=== PATIENT | male | born 1985 | race Caucasian/White ===

== ENCOUNTER 2019-11-17 17:13 | Emergency (ER) | payer BC ==
[2019-11-17] MEDS ORDERED: Amoxicillin/Clavulanate K 875-125 MG Tab PO ONE (17:14)
[2019-11-17] MEDS ORDERED: Ketorolac 10 MG Tab PO ONE (17:14)
[2019-11-17] MEDS ORDERED: Take Home: Ketorolac 10 MG Tab, 4 Tab Pack PO ONE (17:53)
[2019-11-17] MEDS ORDERED: Take Home: Amoxicillin/Clavulanate K 875-125 MG Tab, 2 Tab Pack PO ONE (17:53)
[2019-11-17 17:56] VITALS: BP 185/124
[2019-11-17 17:57] VITALS: PULSE 64
--- NOTE | 2019-11-17 18:01 | EDM.PDOC ---
ED HPI GENERAL MEDICAL PROBLEM - General Chief Complaint: General Stated Complaint: ? infected tooth Time Seen by Provider: 11/17/19 17:40 Source of Information: Reports: Patient History Limitations: Reports: No Limitations - History of Present Illness INITIAL COMMENTS - FREE TEXT/NARRATIVE: Godfrey is a 34 yo male who presents ambulatory to the ED with complaints of tooth pain to the right upper and lower jaws. Admits the pain is a 9 out of 10. He thinks he has an infected tooth. Admits to poor dentition. States it has been hurting the last couple days. States he last took Tylenol around 1200 today. Jaw Pain Score (Numeric/FACES): 9 - Related Data Allergies Allergy/AdvReac Type Severity Reaction Status Date / Time morphine Allergy Nausea Verified 11/17/19 17:38 Home Meds: Home Meds . [No Known Home Meds] 06/01/15 [History] Past Medical History - Past Health History Medical/Surgical History: Denies Medical/Surgical History Other Musculoskeletal History: right femur fracture Other Oncologic History: Precancerous colon polyp - Infectious Disease History Infectious Disease History: Reports: MRSA - Past Surgical History HEENT Surgical History: Reports: Adenoidectomy, Tonsillectomy Other Musculoskeletal Surgeries/Procedures:: Fracture repair to right femur Social & Family History - Tobacco Use Smoking Status *Q: Current Every Day Smoker Years of Tobacco use: 16 Packs/Tins Daily: 0.5 - Caffeine Use Caffeine Use: Reports: Soda - Recreational Drug Use Recreational Drug Use: No ED ROS GENERAL - Review of Systems Review Of Systems: Comprehensive ROS is negative, except as noted in HPI. ED EXAM, GENERAL - Physical Exam Exam: See Below Exam Limited By: No Limitations General Appearance: Alert, No Apparent Distress Ears: Normal External Exam, Normal Canal, Hearing Grossly Normal, Normal TMs Nose: No Blood, Other (purulent discharge, tenderness with palpation to right maxillary sinus) Throat/Mouth: Other (tenderness along right palate, no obvious abscess) Head: Sinus Tenderness. No: Facial Swelling Neck: Normal Inspection, Supple Respiratory/Chest: No Respiratory Distress, Lungs Clear, Normal Breath Sounds, No Accessory Muscle Use, Chest Non-Tender Cardiovascular: Regular Rate, Rhythm, No Murmur Neurological: Alert, Oriented, Normal Cognition, No Motor/Sensory Deficits Psychiatric: Normal Affect, Normal Mood Skin Exam: Warm, Dry, Intact Course - Vital Signs Last Recorded V/S: Last Vital Signs Temp 97.8 F 11/17/19 17:14 Pulse 72 11/17/19 17:14 Resp 18 11/17/19 17:14 BP 171/124 H 11/17/19 17:14 Pulse Ox 100 11/17/19 17:14 - Orders/Labs/Meds Orders: Active Orders 24 hr Category Date Time Status Amoxicillin/Clavulanate K [Take Home: Amox/Clavulanate Med 11/17/19 17:53 Once 875-12, 2 Tab Pac] 2 packet PO ONETIME ONE Ketorolac [Take Home: Ketorolac 10 MG, 4 Tab Pack] Med 11/17/19 17:53 Once 2 packet PO ONETIME ONE Departure - Departure Time of Disposition: 18:03 Disposition: Home, Self-Care 01 Clinical Impression: Uncontrolled hypertension Sinus infection Qualifiers: Sinusitis location: maxillary Chronicity: acute Recurrence: non-recurrent Qualified Code(s): J01.00 - Acute maxillary sinusitis, unspecified - Discharge Information Additional Instructions: 1) Augmentin 875/125 - 1 tablet twice a day for 10 days 2) Ketorolac 10mg - 1 tablet every 8 hours as needed for pain 3) Lisinopril 10mg daily, recheck in clinic at 7:30 on Friday 4) Follow up sooner if pain worsens or any new onset of symptoms. Sepsis Event Note - Evaluation Sepsis Screening Result: No Definite Risk - Focused Exam Vital Signs: Vital Signs Temp Pulse Resp BP Pulse Ox 11/17/19 17:14 97.8 F 72 18 171/124 H 100 Date Exam was Performed: 11/17/19 Time Exam was Performed: 17:54 - Problem List & Annotations (1) Sinus infection SNOMED Code(s): 60629905 Code(s): J32.9 - CHRONIC SINUSITIS, UNSPECIFIED Status: Acute Qualifiers: Sinusitis location: maxillary Chronicity: acute Recurrence: non- recurrent Qualified Code(s): J01.00 - Acute maxillary sinusitis, unspecified (2) Uncontrolled hypertension SNOMED Code(s): 03902788, 80358089 Code(s): I10 - ESSENTIAL (PRIMARY) HYPERTENSION Status: Acute - My Orders Last 24 Hours: My Active Orders 11/17/19 17:53 Amoxicillin/Clavulanate K [Take Home: Amox/Clavulanate 875-12, 2 Tab Pac] 2 packet PO ONETIME ONE Ketorolac [Take Home: Ketorolac 10 MG, 4 Tab Pack] 2 packet PO ONETIME ONE - Assessment/Plan Last 24 Hours: My Active Orders 11/17/19 17:53 Amoxicillin/Clavulanate K [Take Home: Amox/Clavulanate 875-12, 2 Tab Pac] 2 packet PO ONETIME ONE Ketorolac [Take Home: Ketorolac 10 MG, 4 Tab Pack] 2 packet PO ONETIME ONE Plan: I did not see any sign of dental abscess. Did appear to be more secondary to right maxillary sinus. Will treat with course of Augmentin. did discuss other possible causes, especially what appears along the right facial nerve. Advise if any rashes or worsening of symptoms, needs to return to ED. Did discuss blood pressure into detail today. He understands cutting back on salt and caffeine intake. Encourage smoking cessation. Will discharge home with Lisinopril. He will see myself in clinic on Friday at 7:30 for recheck. Discussed uncontrolled blood pressure and increased risk of heart attack and stroke. Godfrey verbalized understanding.
[2019-11-17] MEDS: Lisinopril 10 MG Tab PO SCH ×2 (18:16→18:19)
[2019-11-17] MEDS ORDERED: Lisinopril 10 MG Tab ONE (18:20)
== END 2019-11-17 18:16 | disposition home or self-care (01) ==
LOC: CC.ED 17:13
DX: J01.00 Acute maxillary sinusitis, unspecified (principal); I10 Essential (primary) hypertension; F17.210 Nicotine dependence, cigarettes, uncomplicated; Z88.5 Allergy status to narcotic agent
CPT/HCPCS: 99282; A9270

== ENCOUNTER 2020-03-08 16:43 | Emergency (ER) | payer OTHER, BC ==
[2020-03-08] MEDS ORDERED: Lidocaine 1% 20 ML MDV INJECT ONE (16:44)
[2020-03-08 16:53] VITALS: PULSE 89
--- NOTE | 2020-03-08 16:55 | EDM.PDOC ---
ED HPI GENERAL MEDICAL PROBLEM - General Chief Complaint: Laceration Stated Complaint: laceration Time Seen by Provider: 03/08/20 16:45 Source of Information: Reports: Patient History Limitations: Reports: No Limitations - History of Present Illness INITIAL COMMENTS - FREE TEXT/NARRATIVE: Had finger crushed between a tire and oil osorio at work. Works at [employer]. Has laceration to the 3rd finger. He denies any other injury at this time. Was started on meds for BP several months ago and has not been back in to follow up with [facility] so has been out of them for at least 2 months. Has not had BP checked since. Denies any symptoms with it. Onset: Sudden Quality: Reports: Throbbing Left Middle Finger-Middle Pain Score (Numeric/FACES): 3 - Related Data Allergies Allergy/AdvReac Type Severity Reaction Status Date / Time morphine Allergy Nausea Verified 03/08/20 16:53 Home Meds: Home Meds . [No Known Home Meds] 06/01/15 [History] Past Medical History - Past Health History Medical/Surgical History: Denies Medical/Surgical History Other Musculoskeletal History: right femur fracture Other Oncologic History: Precancerous colon polyp - Infectious Disease History Infectious Disease History: Reports: MRSA - Past Surgical History HEENT Surgical History: Reports: Adenoidectomy, Tonsillectomy Other Musculoskeletal Surgeries/Procedures:: Fracture repair to right femur Social & Family History - Caffeine Use Caffeine Use: Reports: Soda ED ROS GENERAL - Review of Systems Review Of Systems: See Below Constitutional: Reports: No Symptoms HEENT: Reports: No Symptoms Respiratory: Reports: No Symptoms Cardiovascular: Reports: No Symptoms GI/Abdominal: Reports: No Symptoms Musculoskeletal: Reports: No Symptoms Skin: Reports: Wound (3rd finger right hand) Neurological: Reports: No Symptoms ED EXAM, SKIN/RASH Exam: See Below Exam Limited By: No Limitations General Appearance: Alert, WD/WN, Mild Distress Skin: Warm, Dry Location, Skin: Other (right 3rd finger. Laceration to the pad of the finger over the MIP joint and between the DIP joint.) ED SKIN PROCEDURES - Laceration/Wound Repair Right Digit - 3rd (Middle) Appearance: Superficial, Moderately Contaminated (with greas and oil.) Distal NVT: Neuro & Vascular Intact Anesthetic Type: Digital Local Anesthesia - Lidocaine (Xylocaine): 1% Plain Local Anesthetic Volume: 5cc Skin Prep: Other (with surclens.) Exploration/Debridement/Repair: Minimal Debridement Closed with: Sutures Lac/Wound length In cm: 2 Suture Size: 4-0 Suture Type: Nylon, Interrupted, Simple Sterile Dressing Applied: Nurse Tetanus Status Addressed: Yes Complications: No Course - Vital Signs Last Recorded V/S: Last Vital Signs Temp 100.4 F 03/08/20 16:44 Pulse 89 03/08/20 16:44 Resp 20 03/08/20 16:44 BP 134/108 H 03/08/20 17:38 Pulse Ox 99 03/08/20 16:44 - Orders/Labs/Meds Orders: Active Orders 24 hr Category Date Time Status Fingers Third Digit Lt F2 [CR] Stat Exams 03/08/20 16:45 Ordered Meds: Medications Discontinued Medications Generic Name Dose Route Start Last Admin Trade Name Jefryq PRN Reason Stop Dose Admin Lidocaine HCl 20 ml 03/08/20 16:44 03/08/20 17:00 Xylocaine 1% INJECT 03/08/20 16:45 5 ml ONETIME ONE Administration Lisinopril 10 mg 03/08/20 17:22 03/08/20 17:38 Prinivil PO 03/08/20 17:23 10 mg ONETIME ONE Administration Neomycin/Polymyxin/Bacitracin 1 each 03/08/20 17:06 03/08/20 17:15 Triple Antibiotic Oint TOP 03/08/20 17:07 1 each ONETIME ONE Administration Departure - Departure Time of Disposition: 17:14 Disposition: Home, Self-Care 01 Condition: Good Clinical Impression: Uncontrolled hypertension, Laceration - Discharge Information *PRESCRIPTION DRUG MONITORING PROGRAM REVIEWED*: Not Applicable *COPY OF PRESCRIPTION DRUG MONITORING REPORT IN PATIENT RASHIDA: Not Applicable Instructions: Laceration Care, Adult, [id number] Referrals: PCP,Unknown [Primary Care Provider] - Forms: ED Department Discharge Additional Instructions: keep clean and dry change dressing with antibiotic ointment and dry dressing daily or more often if needed lisinopril 10 mg daily Follow up with PCP for recheck on BP within about a month suture removal in 10 days. Make clinic appt for this. Call clinic if any concerns. Sepsis Event Note - Focused Exam Vital Signs: Vital Signs Temp Pulse Resp BP BP Pulse Ox 03/08/20 17:38 134/108 H 03/08/20 16:44 100.4 F 89 20 170/108 H 99 Date Exam was Performed: 03/08/20 Time Exam was Performed: 17:44 - Problem List & Annotations (1) Uncontrolled hypertension SNOMED Code(s): 36122324, 46982243 Code(s): I10 - ESSENTIAL (PRIMARY) HYPERTENSION Status: Acute Priority: High Current Visit: Yes (2) Laceration SNOMED Code(s): 091642582 Code(s): [id number] - Status: Acute Priority: High Current Visit: Yes - Problem List Review Problem List Initiated/Reviewed/Updated: Yes - My Orders Last 24 Hours: My Active Orders 03/08/20 16:45 Fingers Third Digit Lt F2 [CR] Stat - Assessment/Plan Last 24 Hours: My Active Orders 03/08/20 16:45 Fingers Third Digit Lt F2 [CR] Stat
[2020-03-08] MEDS ORDERED: Bacitracin/Neomycin/Polymyxin B Oint 0.9 GM U/D Packet TOP ONE (17:06)
[2020-03-08] MEDS ORDERED: Lisinopril 10 MG Tab PO ONE (17:22)
[2020-03-08 17:39] VITALS: BP 134/108
== END 2020-03-08 17:45 | disposition home or self-care (01) ==
LOC: CC.ED 16:43
DX: S61.212A Laceration without foreign body of right middle finger without damage to nail, initial encounter (principal); I10 Essential (primary) hypertension; W23.0XXA Caught, crushed, jammed, or pinched between moving objects, initial encounter; Z88.5 Allergy status to narcotic agent
CPT/HCPCS: 12001; 73140-F2; 99283-25; A9270-GY; J2001

== ENCOUNTER 2022-07-07 00:55 | Emergency (ER) | payer BC, OTHER ==
[2022-07-07 01:03] VITALS: PULSE 65
[2022-07-07 01:25] VITALS: BP 160/100
== END 2022-07-07 01:30 | disposition home or self-care (01) ==
LOC: CC.ED 00:55
DX: J06.9 Acute upper respiratory infection, unspecified (principal); I10 Essential (primary) hypertension; Z88.5 Allergy status to narcotic agent
CPT/HCPCS: 99283